=== PATIENT | female | born 1950 | race Caucasian/White ===

== ENCOUNTER → 2016-09-27 | Outpatient (CLI) | payer BC ==
--- NOTE | 2016-09-29 14:29 | SS ---
ADMIT: 09/27/2016 RM/LOC: [facility] MR#: [id number] [id number] [place], [place] [address] THU FONG [address] [place] [address] Sleep Study SEX: F AGE: 66 : 1950 STUDY DATE: 09/27/2016 CLINICAL HISTORY: A 66-year-old female, body mass 44.1, 60 inches tall, 224 pounds, who has symptoms of snoring, insomnia in the sleep lab for evaluation of obstructive sleep apnea complaints of fatigue symptoms in the morning. TECHNICAL DESCRIPTION: Split-night polysomnogram performed on night of 09/27/2016, attended by trained research technologist. DIAGNOSTIC POLYSOMNOGRAM FINDINGS: SLEEP: Total time bed is 274.5 minutes, total sleep time is 145.5 minutes, sleep efficiency is 53%. 40.4% hours spent in stage II sleep, no REM sleep was seen. BREATHING: Severe obstructive sleep apnea with apnea-hypopnea index of 61. During the study, there were 9 obstructive apneas, 133 obstructive hypopneas noted. OXYGEN SATURATION: Mean sleeping oxygen is 90%, lowest oxygen saturation is 80%. 70.8% hours spent in saturating 80% to 89%. CARDIAC: Average heart rate is 84 beats per minute. MOVEMENTS/POSITION: During the study, the patient slept in the supine lateral position with no significant periodic leg movements while sleep. CPAP TITRATION FINDINGS: TITRATION DESCRIPTION: The patient was titrated from 5 cm CPAP to 11 cm of CPAP. A ResMed AirFit N20 small nasal mask was used. SLEEP: Total time in bed is 225.5 minutes, total sleep time is 185 minutes, sleep efficiency 82%. 58.8% hours spent in stage II sleep, 18.2% hours time was spent in stage REM. BREATHING: The patient had excellent resolution of obstructive sleep apnea with CPAP at 11 cm. The patient was seen in REM sleep in lateral position with complete resolution of obstructive events. ADMIT: 09/27/2016 RM/LOC: [facility] MR#: [id number] [address] [address] THU FONG [address] [place] [address] Sleep Study SEX: F AGE: 66 : 1950 OXYGEN SATURATION: Mean sleeping is 91%. CARDIAC: Average heart rate is 78 beats per minute. MOVEMENTS/POSITION: During the study, the patient slept predominantly in supine position with no significant leg movements. IMPRESSION AND PLAN: Severe obstructive sleep apnea with apnea-hypopnea of 61. Recommend using CPAP at 11 cm with the ResMed AirFit N20 small nasal mask. Recommend losing weight, avoiding sedatives or alcohol, refrain from driving if excessively sleepy. Clinical correlation needed. CPAP compliance followup is recommended. Kush Santacruz MD/ rubina JOB #: [id number] CC: Tesfaye Covarrubias MD, Attending Physician Tesfaye Covarrubias MD, Family Physician
== END | disposition home or self-care (01) ==
LOC: RESC 20:08
DX: G47.00 Insomnia, unspecified (principal); R06.83 Snoring; G47.33 Obstructive sleep apnea (adult) (pediatric)

== ENCOUNTER → 2016-10-04 | Outpatient (CLI) | payer BC | END | disposition home or self-care (01) | LOC: RAD.S 09-26 09:09 | DX: N64.4 Mastodynia (principal) ==

== ENCOUNTER 2016-12-12 22:07 | Emergency (ER) | payer BC ==
--- NOTE | 2016-12-24 08:56 | ER ---
ADMIT: 12/12/2016 RM/LOC: [facility] MR#: [id number] [address] [address] THU FONG [address] [place] [address] Emergency Room Report SEX: F AGE: 66 : 1950 DATE: 12/12/2016 ADDENDUM: CHIEF COMPLAINT: Hyperglycemia. HISTORY OF PRESENT ILLNESS: This is a known diabetic who has had high blood sugars, more elevated today. COURSE IN THE EMERGENCY ROOM: I did give her a liter of fluids, this brought the blood sugar down to 252. She feels significantly better. I discharged her home. CLINICAL IMPRESSION: Hyperglycemia with known diabetes. MICHAEL Stauffer / Hakan Oliveira MD / modl JOB #: [id number] CC: Hakan Oliveira MD, Attending Physician Tesfaye Covarrubias MD, Family Physician
== END 2016-12-13 00:39 | disposition home or self-care (01) ==
LOC: ER 22:07
DX: E11.65 Type 2 diabetes mellitus with hyperglycemia (principal); D64.9 Anemia, unspecified; I10 Essential (primary) hypertension; Z79.4 Long term (current) use of insulin; Z94.0 Kidney transplant status; Z98.890 Other specified postprocedural states